=== PATIENT | male | born 1960 | race Caucasian/White ===

== ENCOUNTER → 2020-09-29 | Outpatient (CLI) | payer MEDICARE ==
[~2020-09-29] MED LIST: ALDACTONE25 MG PO; ALLEGRA ALLERG180 MG PO; AMLODIPINE BESY10 MG PO; ANTIVERT 25MG T25 MG PO; AZITHROMYCIN250 MG PO; AZITHROMYCIN500 MG PO; CENTRUM SILVER1 EAC1 PO; DECADRON6 MG PO; ELIQUIS 2.5 MG2.5 MG PO; FENOFIBRATE160 MG PO; FISH OIL 1,0001 EAC1 PO; FLOMAX0.4 MG PO; FLUZONE QU60 MCG/013 IM; GINKGO60 MG PO; HYDROCHLOROTHIA25 MG PO; HYDROCODON-ACE1 EAC4 PO; IBUPROFEN800 MG PO; INVANZ 1 GM VIAL1 GM IV; LIPITOR40 MG PO; LISINOPRIL-HCT1 EAC1 PO; LISINOPRIL20 MG PO; LORTAB 7.5-3251 EACH PO; NAPROXEN500 MG PO; NORCO 7.5-3251 EACH PO; NORVASC10 MG PO; OMEPRAZOLE40 MG PO; OMNICEF 300 MG300 MG PO; PERCOCET 10-321 EACH PO; PREDNISONE20 MG PO; TRAMADOL HCL50 MG PO; ULTRAM50 MG PO; VENTOLIN HFA 66.7 GM INH; VITAMIN B-121000 MCG PO; ZESTRIL10 MG PO; ZOFRAN 4 MG TAB4 MG PO; ZOFRAN ODT 4 MG4 MG PO; [UNRECOGNIZED DRUG - OTHER] PO; [UNRECOGNIZED DRUG - OTHER] TD
== END ==
LOC: LAB 11:21
DX: R79.89 Other specified abnormal findings of blood chemistry (principal)
CPT/HCPCS: 36415; 80076; 82728

== ENCOUNTER 2020-10-08 02:26 | Emergency (ER) | payer MEDICARE ==
[~2020-10-08 02:26] MED LIST changes: -AZITHROMYCIN250 MG PO; -DECADRON6 MG PO; -HYDROCODON-ACE1 EAC4 PO; -IBUPROFEN800 MG PO; -ZOFRAN 4 MG TAB4 MG PO
[2020-10-08 03:21] LABS: HEMOGLOBIN 13.7 gm/dl (14.0-17.5); RED BLOOD COUNT 4.36 M/UL (4.20-5.50); WHITE BLOOD COUNT 8.4 K/UL (4.5-11.0)
[2020-10-08 03:49] LABS: BUN/CREATININE RATIO 17 (0-10)
[2020-10-08] MEDS ORDERED: FLOMAX0.4 MG PO (04:49)
[2020-10-08] MEDS ORDERED: IBUPROFEN800 MG PO (04:49)
[2020-10-08] MEDS ORDERED: ZOFRAN 4 MG TAB4 MG PO (04:49)
[2020-10-08] MEDS ORDERED: HYDROCODON-ACE1 EAC4 PO (04:49)
== END 2020-10-08 09:40 | disposition home or self-care (01) ==
LOC: ER1 02:26
PROVIDERS: Emergency Medicine
DX: N13.2 Hydronephrosis with renal and ureteral calculous obstruction (principal); Z88.0 Allergy status to penicillin; Z87.442 Personal history of urinary calculi
CPT/HCPCS: 80053; 81001; 83690; 85025; 93005; 96374; 96375; 99284; J1885; J2270; J2405

== ENCOUNTER 2020-10-17 13:32 | Emergency (ER) | payer MEDICARE ==
[~2020-10-17] VITALS: Ht 180.3 cm; Wt 140.2 kg
[~2020-10-17 13:32] MED LIST changes: +HYDROCODON-ACE1 EAC4 PO; +IBUPROFEN800 MG PO; +ZOFRAN 4 MG TAB4 MG PO
[2020-10-17 14:54] LABS: RED BLOOD COUNT 4.21 M/UL (4.20-5.50); WHITE BLOOD COUNT 3.9 K/UL (4.5-11.0)
[2020-10-17 15:18] LABS: BUN/CREATININE RATIO 15 (0-10)
[2020-10-17] MEDS ORDERED: DECADRON6 MG PO (17:45)
[2020-10-17] MEDS ORDERED: AZITHROMYCIN250 MG PO (17:45)
== END 2020-10-17 17:59 | disposition home or self-care (01) ==
LOC: ER1 13:32
PROVIDERS: Family Medicine
DX: U07.1 COVID-19 (principal); J12.82 Pneumonia due to coronavirus disease 2019; I10 Essential (primary) hypertension; Z87.442 Personal history of urinary calculi; Z88.0 Allergy status to penicillin; Z87.09 Personal history of other diseases of the respiratory system
CPT/HCPCS: 0240U; 36415; 80053; 82550; 82553; 83605; 83874; 83880; 84484; 85025; 87040; 96374; 99285; J2185; Q9967

== ENCOUNTER 2020-10-22 21:16 | Emergency (ER) | payer MEDICARE ==
[~2020-10-22 21:16] MED LIST changes: +AZITHROMYCIN250 MG PO; +DECADRON6 MG PO
== END 2020-10-22 23:42 | disposition home or self-care (01) ==
LOC: ER1 21:16
DX: U07.1 COVID-19 (principal); J12.82 Pneumonia due to coronavirus disease 2019; I10 Essential (primary) hypertension; Z88.0 Allergy status to penicillin
CPT/HCPCS: 36415; 36600; 71046; 82803; 99285

== ENCOUNTER → 2020-11-10 | Outpatient (CLI) | payer MEDICARE | LOC: KOH-I 10-15 08:30 | DX: R79.89 Other specified abnormal findings of blood chemistry (principal); K76.0 Fatty (change of) liver, not elsewhere classified; N28.1 Cyst of kidney, acquired | CPT/HCPCS: 76700 ==